=== PATIENT | female | born 1975 | race Hispanic/Latino ===

== ENCOUNTER → 2023-10-20 17:28 | Outpatient (REF) | payer BC, SELFPAY | LOC: WDC 17:28 | PROVIDERS: ATTENDING PHYSICIAN Obstetrics & Gynecology; FAMILY PHYSICIAN Physician Assistant Medical | DX: Z12.31 Encounter for screening mammogram for malignant neoplasm of breast (principal) | CPT/HCPCS: 77063; 77067 ==